=== PATIENT | male | born 1950 | race Caucasian/White ===

== ENCOUNTER → 2017-09-01 | Outpatient (CLI) | payer MEDICARE ==
--- NOTE | 2017-09-01 14:46 | RADIOLOGY REPORT (SQ) ---
EXAM DESCRIPTION: CHEST PA/LATERAL COMPLETED DATE/TIME: 09/01/2017 2:30 pm REASON FOR STUDY: PRE-OP COMPARISON: None. EXAM PARAMETERS: NUMBER OF VIEWS: two views TECHNIQUE: Digital Frontal and Lateral radiographic views of the chest acquired. RADIATION DOSE: NA LIMITATIONS: none FINDINGS: LUNGS AND PLEURA: No opacities, masses or pneumothorax. No pleural effusion. MEDIASTINUM AND HILAR STRUCTURES: No masses or contour abnormalities. HEART AND VASCULAR STRUCTURES: Heart normal size. No evidence for failure. BONES: No acute findings. HARDWARE: None in the chest. OTHER: No other significant finding. IMPRESSION: NO SIGNIFICANT RADIOGRAPHIC FINDING IN THE CHEST. TECHNICAL DOCUMENTATION: JOB ID: [id number]- All Rights Reserved Reading location - IP/workstation name: [email or web address]
[2017-09-01 15:14] LABS: ABSOLUTE BASOPHILS # (AUTO) 0.1 10^3/uL (0.0-0.2); ABSOLUTE LYMPHOCYTES (AUTO) 2.5 10^3/uL (0.5-4.7); ABSOLUTE MONOCYTES (AUTO) 0.8 10^3/uL (0.1-1.4); ABSOLUTE NEUT (AUTO) 5.3 10^3/uL (1.7-8.2); BASOPHILS % (AUTO) 0.6 % (0-2); HEMATOCRIT 46.1 % (37.9-51.0); HEMOGLOBIN 15.3 g/dL (13.5-17.0); LYMPHOCYTES % (AUTO) 26.2 % (13-45); MEAN CORPUSCULAR HEMOGLOBIN 30.8 pg (27.0-33.4); MEAN CORPUSCULAR HGB CONC 33.1 g/dL (32.0-36.0); MEAN CORPUSCULAR VOLUME 93 fl (80-97); MONOCYTES % (AUTO) 8.8 % (3-13); PLATELET COUNT 196 10^3/uL (150-450); RED BLOOD COUNT 4.96 10^6/uL (4.35-5.55); RED CELL DISTRIBUTION WIDTH 13.7 % (11.5-14.0); SEGMENTED NEUTROPHILS % (AUTO) 54.4 % (42-78); TOTAL CELLS COUNTED % (AUTO) 100 %; WHITE BLOOD COUNT 9.6 10^3/uL (4.0-10.5)
[2017-09-01 15:41] LABS: ANION GAP 12 (5-19); BLOOD UREA NITROGEN 22 mg/dL (7-20); CALCIUM 9.3 mg/dL (8.4-10.2); CARBON DIOXIDE 26 mmol/L (22-30); CHLORIDE 107 mmol/L (98-107); GLUCOSE 118 mg/dL (75-110); POTASSIUM 4.6 mmol/L (3.6-5.0); SODIUM 144.8 mmol/L (137-145)
--- NOTE | 2017-09-01 19:39 | EKG REPORT ---
SEVERITY:- OTHERWISE NORMAL ECG - SINUS RHYTHM LEFT AXIS DEVIATION : Confirmed by: Riaz Alejo MD 01-Sep-2017 19:38:46
== END ==
LOC: OD 13:40
PROVIDERS: ATTEND Orthopaedic Surgery
DX: Z01.818 Encounter for other preprocedural examination (principal); M23.42 Loose body in knee, left knee; M24.10 Other articular cartilage disorders, unspecified site
CPT/HCPCS: 36415; 71046; 80048; 85025; 93005; 93010

== ENCOUNTER 2017-09-08 06:42 | Day surgery (SDC) | payer MEDICARE ==
[2017-09-03 10:41] LABS: APPEARANCE,URINE CLEAR; BILIRUBIN,URINE NEGATIVE (NEGATIVE); COLOR,URINE YELLOW; GLUCOSE, URINE NEGATIVE (NEGATIVE); KETONES,URINE NEGATIVE (NEGATIVE); LEUKOCYTE ESTERASE,URINE NEGATIVE (NEGATIVE); NITRITE,URINE NEGATIVE (NEGATIVE); PROTEIN,URINE NEGATIVE (NEGATIVE); URINE SPECIFIC GRAVITY 1.011; UROBILINOGEN,URINE NEGATIVE mg/dL (<2.0)
[~2017-09-08 06:42] MED LIST: CEFAZOLIN 2 GM/D5W RTU 2 GM/50 ML RTUPB IV PRN; CEFAZOLIN SODIUM 2 GM in DEXTROSE 5%-WATER 100 ML IV SCH; LACTATED RINGERS 1000 ML IV PRN; LIDOCAINE 0.5% INJ-PF (5 MG/ML) 50 ML SDV SUBCUT PRN
[2017-09-08] MEDS ORDERED: BUPIVACAINE HCL 0.5 % INJ/PF 30 ML SDV ONE (08:14)
[2017-09-08] MEDS ORDERED: LIDOCAINE 1%/EPINEPHRINE INJ 20 ML VIAL ONE (08:14)
[2017-09-08] MEDS ORDERED: PROPOFOL INJ 200 MG/20 ML VIAL IV ONE (09:07)
[2017-09-08] MEDS ORDERED: FENTANYL CITRATE INJ/PF 100 MCG/2 ML AMPUL ONE (09:07)
[2017-09-08] MEDS ORDERED: MIDAZOLAM 2 MG/2 ML INJ ONE (09:07)
[2017-09-08] MEDS ORDERED: OXYCODONE-ACETAMINOPHEN 5-325 MG TABLET PO PRN ×2 (09:27)
[2017-09-08] MEDS ORDERED: PROMETHAZINE HCL INJ 25 MG/1 ML VIAL IV PRN ×2 (09:27)
[2017-09-08] MEDS ORDERED: MEPERIDINE HCL/PF INJ 25 MG/1 ML DISP.SYRIN IV PRN (09:27)
[2017-09-08] MEDS ORDERED: FENTANYL CITRATE INJ/PF 100 MCG/2 ML AMPUL IV PRN ×3 (09:27)
[2017-09-08] MEDS ORDERED: DIPHENHYDRAMINE HCL 50 MG/ML VIAL IV PRN (09:27)
--- NOTE | 2017-09-08 10:24 | Operative Report ---
Operative Report DATE OF SURGERY: 09/08/17 PREOPERATIVE DIAGNOSIS: Loose bodies left knee POSTOPERATIVE DIAGNOSIS: Loose body 3 left knee. Lateral meniscal tear. Lateral tibial plateau chondral defect. Intact ACL. Intact medial meniscus. 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 The knee is insufflated with combination of Xylocaine, Marcaine, and epinephrine. Subsequent medial lateral patella portals are created for the introduction of the arthroscope and debridements mentation. The joint is examined in systematic fashion. The findings demonstrated above. The first loose bodies identified at the base of the ACL. This is easily removed using a grabber. Is removed piecemeal because the particle is large and I did not want to increase the size of the portal to necessarily remove the loose body. Next loose body was identified in the posterior aspect of the knee. This was fairly elusive but eventually a grabber was able to remove this loose body piecemeal. Lastly a loose body is found over in the lateral gutter and this is removed piecemeal using a grabber. A partial lateral meniscectomy was performed from approximately 6:00 to 2:00 on the face of the dial. The joint again is examined in systematic fashion with no new findings. Instrumentation is removed. Portals reapproximated interrupted nylon. There is of note a fair amount of soft tissue edema presumed from for infiltration of the arthroscopy and a prolonged case. A compressive dressing is applied.
[2017-09-08] MEDS ORDERED: OXYCODONE HCL IR 5 MG TABLET PO PRN (10:38)
[2017-09-08] MEDS ORDERED: ONDANSETRON 4 MG TAB.RAPDIS SL PRN (10:38)
[2017-09-08] MEDS: FENTANYL CITRATE INJ/PF 100 MCG/2 ML AMPUL ONE ×2 (10:45→10:50)
[2017-09-08 12:45] VITALS: BP 114/77
[2017-09-08] MEDS ORDERED: LIDOCAINE 2% INJ-PF (20 MG/ML) 2 ML AMPUL ONE (13:40)
== END 2017-09-08 12:40 | disposition home or self-care (01) ==
LOC: OROUT 06:42
PROVIDERS: ATTEND Orthopaedic Surgery
DX: S83.282A Other tear of lateral meniscus, current injury, left knee, initial encounter (principal); X58.XXXA Exposure to other specified factors, initial encounter; M22.42 Chondromalacia patellae, left knee; M24.10 Other articular cartilage disorders, unspecified site; K21.9 Gastro-esophageal reflux disease without esophagitis; Z79.82 Long term (current) use of aspirin; Z79.899 Other long term (current) drug therapy
CPT/HCPCS: 29881; G0289; 1400; 36415; 81001; 88304; 88311; J0690; J2250; J2704; J3010; J3490

== ENCOUNTER 2019-09-11 16:40 | Inpatient (IN) | payer MEDICARE ==
[2019-09-11] MEDS ORDERED: NORMAL SALINE 1000 ML 1,000 ML IV ONE ×3 (17:31→21:59)
[2019-09-11 17:56] LABS: HEMOGLOBIN 9.9 g/dL (13.5-17.0); MEAN CORPUSCULAR HEMOGLOBIN 22.5 pg (27.0-33.4); MEAN CORPUSCULAR HGB CONC 30.9 g/dL (32.0-36.0); MEAN CORPUSCULAR VOLUME 73 fl (80-97); PLATELET COUNT 260 10^3/uL (150-450); RED CELL DISTRIBUTION WIDTH 17.8 % (11.5-14.0); WHITE BLOOD COUNT 14.3 10^3/uL (4.0-10.5)
[2019-09-11 18:04] LABS: ALBUMIN 3.7 g/dL (3.5-5.0); ALKALINE PHOSPHATASE 98 U/L (38-126); ANION GAP 7 (5-19); ASPARTATE AMINO TRANSFERASE 36 U/L (17-59); BILIRUBIN,TOTAL 0.5 mg/dL (0.2-1.3); BLOOD UREA NITROGEN 21 mg/dL (7-20); CALCIUM 9.1 mg/dL (8.4-10.2); CARBON DIOXIDE 25 mmol/L (22-30); CHLORIDE 104 mmol/L (98-107); CREATINE KINASE 279 U/L (55-170); GLUCOSE 124 mg/dL (75-110); POTASSIUM 3.8 mmol/L (3.6-5.0); TOTAL PROTEIN 6.3 g/dL (6.3-8.2)
[2019-09-11 18:12] LABS: ABSOLUTE LYMPHOCYTES# (MANUAL) 0.6 10^3/uL (0.5-4.7); BAND NEUTROPHILS % (MANUAL) 1 % (3-5); BASOPHILS % (MANUAL) 1 % (0-2); EOSINOPHILS % (MANUAL) 2 % (0-6); LYMPHOCYTES % (MANUAL) 4 % (13-45); MONOCYTES % (MANUAL) 7 % (3-13); SEGMENTED NEUTROPHILS % (MAN) 85 % (42-78); TOTAL CELLS COUNTED 100
[2019-09-11 18:14] LABS: ANISOCYTOSIS 1+; OVALOCYTES SLIGHT; PLATELET COMMENT ADEQUATE; PLATELET LARGE PRESENT; POIKILOCYTOSIS SLIGHT
--- NOTE | 2019-09-11 18:15 | RADIOLOGY REPORT (SQ) ---
EXAM DESCRIPTION: CHEST SINGLE VIEW IMAGES COMPLETED DATE/TIME: 09/11/2019 4:51 pm REASON FOR STUDY: sob COMPARISON: 09/01/2017 EXAM PARAMETERS: NUMBER OF VIEWS: One view. TECHNIQUE: Single frontal radiographic view of the chest acquired. RADIATION DOSE: NA LIMITATIONS: None. FINDINGS: LUNGS AND PLEURA: No opacities, masses or pneumothorax. No pleural effusion. MEDIASTINUM AND HILAR STRUCTURES: No masses. Contour normal. HEART AND VASCULAR STRUCTURES: Heart normal in size. Normal vasculature. BONES: No acute findings. HARDWARE: None in the chest. OTHER: No other significant finding. IMPRESSION: NO ACUTE RADIOGRAPHIC FINDING IN THE CHEST. TECHNICAL DOCUMENTATION: JOB ID: [id number] 2010 [employer]- All Rights Reserved Reading location - IP/workstation name: [email or web address]
[2019-09-11 19:05] LABS: APPEARANCE,URINE CLOUDY; BILIRUBIN,URINE NEGATIVE (NEGATIVE); COLOR,URINE AMBER; GLUCOSE, URINE NEGATIVE (NEGATIVE); KETONES,URINE NEGATIVE (NEGATIVE); PROTEIN,URINE 100 mg/dL (NEGATIVE); URINE SPECIFIC GRAVITY 1.025
[2019-09-11] MEDS ORDERED: LEVOFLOXACIN 750 MG/D5W RTU 750 MG/150 ML RTUPB IV ONE (19:28)
[2019-09-11] MEDS ORDERED: CEFTRIAXONE 2 GM/D5W RTU 2 GM/50 ML RTUPB IV ONE (21:04)
--- NOTE | 2019-09-11 21:22 | ER Document Report ---
ED General - General Chief Complaint: Heat Exposure Stated Complaint: POSSIBLE HEAT EXHAUSTION Time Seen by Provider: 09/11/19 16:46 Mode of Arrival: Medic Information source: Patient TRAVEL OUTSIDE OF THE [place] IN LAST 30 DAYS: No - HPI Notes: Patient comes in complaining of severe shaking. He states he came home from the store and had an episode where he was shaking uncontrollably and felt short of breath. He states he has not felt like he has had a fever recently. He denies any pain anywhere. He has not had any cough or congestion. He has had no known covert virus exposures. Patient has had no diarrhea. He denies any pain with urination. His symptoms were intermittent. Nothing made them better or worse. They were severe. - Related Data Allergies/Adverse Reactions: No Known Allergies Allergy (Verified 09/08/17 07:24) Home Medications: Prilosec Past Medical History - General Information source: Patient - Social History Smoking Status: Current Every Day Smoker Frequency of alcohol use: None Drug Abuse: None Family History: Reviewed & Not Pertinent Patient has homicidal ideation: No - Past Medical History Cardiac Medical History: Denies: Hx Coronary Artery Disease, Hx Heart Attack, Hx Hypertension Pulmonary Medical History: Denies: Hx Asthma, Hx Bronchitis, Hx COPD, Hx Pneumonia Neurological Medical History: Denies: Hx Cerebrovascular Accident, Hx Seizures Musculoskeletal Medical History: Reports Hx Arthritis - LEFT KNEE - Immunizations Hx Diphtheria, Pertussis, Tetanus Vaccination: - UNSURE Review of Systems - Review of Systems Constitutional: Chills, Fever, Malaise Cardiovascular: denies: Chest pain, Palpitations Respiratory: Short of breath. denies: Cough -: Yes All other systems reviewed and negative Physical Exam - Vital signs Vitals: Temp 100.1 F 09/11/19 16:42 Interpretation: Tachycardic - General General appearance: Appears well, Alert - HEENT Head: Normocephalic, Atraumatic Eyes: Normal Pupils: PERRL - Respiratory Respiratory status: No respiratory distress Chest status: Nontender Breath sounds: Normal Chest palpation: Normal - Cardiovascular Rhythm: Tachycardia Heart sounds: Normal auscultation Murmur: No - Abdominal Inspection: Normal Distension: No distension Bowel sounds: Normal Tenderness: Nontender Organomegaly: No organomegaly - Genitourinary Inspection: Normal Tenderness: Nontender Scrotum: Normal Notes: Prostate is not tender. - Back Back: Normal, Nontender - Extremities General upper extremity: Normal inspection, Nontender, Normal color, Normal ROM, Normal temperature General lower extremity: Normal inspection, Nontender, Normal color, Normal ROM, Normal temperature, Normal weight bearing. No: Alecia's sign - Neurological Neuro grossly intact: Yes Cognition: Normal Orientation: AAOx4 [place] Coma Scale Eye Opening: Spontaneous Henderson Coma Scale Verbal: Oriented Henderson Coma Scale Motor: Obeys Commands Henderson Coma Scale Total: 15 Speech: Normal Motor strength normal: LUE, RUE, LLE, RLE Sensory: Normal - Psychological Associated symptoms: Normal affect, Normal mood - Skin Skin Temperature: Warm Skin Moisture: Dry Skin Color: Normal Course - Re-evaluation Re-evalutation: 09/11/19 21:19 Patient presents with a clinical picture that seems most consistent with prostatitis. He has had rigors chills and a low-grade fever. He has an elevat ed white blood cell count. He has a urine that shows infection. Although his prostate is not tender he does complain of referred pain to the left superior medial thigh. Inspection of this area is unremarkable and is not tender to touch. It seems this is referred pain most likely from the prostate. Patient also has anemia. Patient has been tachycardic the entire time but is never been hypotensive. I was going to try to discharge the patient home however the patient had an episode of severe chills with his heart rate going into the 150s. At that time he also had some expiratory wheezes and stated he felt short of breath. I obtained multiple warm blankets and after about 20 to 25 minutes patient had had significant reduction of his shaking and his heart rate came down from the 150s to the 120s. His oxygen saturation was never noticed to go below 96%. He never had anything but expiratory wheezes and they were mild. His blood pressure has been stable the whole time. He has received 2 L of fluid. He was about an hour into his Levaquin infusion when the above shaking episode started so this was stopped. I have not started Rocephin. I am going to admit the patient. I noted lactate was not initially drawn as I felt the patient was going to be able to be discharged however I have now added on a lactate. - Vital Signs Vital signs: Temp Pulse Resp BP Pulse Ox 98.5 F 103 H 20 132/72 H 97 09/11/19 20:37 09/11/19 19:05 09/11/19 20:00 09/11/19 19:24 09/11/19 19:24 - Laboratory Result Diagrams: 09/11/19 17:20 09/11/19 17:20 Laboratory results interpreted by me: 09/11/19 09/11/19 09/11/19 17:11 17:20 17:20 WBC 14.3 H Hgb 9.9 L Hct 32.0 L MCV 73 L MCH 22.5 L MCHC 30.9 L RDW 17.8 H Seg Neuts % (Manual) 85 H Band Neutrophils % 1 L Lymphocytes % (Manual) 4 L Abs Neuts (Manual) 12.3 H Sodium 135.8 L BUN 21 H Est GFR (MDRD) Non-Af 59 L Glucose 124 H Creatine Kinase 279 H Urine Protein 100 H Urine Blood MODERATE H Urine Nitrite (Reflex) POSITIVE H Urine Urobilinogen 4.0 H Leukocyte Esterase Rfl MODERATE H - Diagnostic Test Radiology reviewed: Image reviewed, Reports reviewed - EKG Interpretation by Me EKG shows normal: Sinus rhythm Rate: Tachycardia Rhythm: NSR - 149 [place]/QRS: Left axis deviation Discharge - Discharge Clinical Impression: Acute prostatitis Condition: Serious Disposition: ADMITTED INPATIENT Admitting Provider: Janis (Hospitalist) Unit Admitted: Telemetry
[2019-09-11] MEDS ORDERED: ONDANSETRON HCL INJ/PF 4 MG/2 ML SDV IV PRN (21:48)
[2019-09-11] MEDS ORDERED: MAG HYDROX/AL HYDROX/SIMETH SUSP 30 ML UDCUP PO PRN (21:48)
[2019-09-11] MEDS ORDERED: RINGERS SOLUTION,LACTATED 1,000 ML IV PRN (21:48)
[2019-09-11] MEDS ORDERED: MAGNESIUM HYDROXIDE SUSP 30 ML UDCUP PO PRN (21:48)
[2019-09-11] MEDS ORDERED: MORPHINE SULFATE 10 MG/ML INJ IV PRN ×4 (21:53→22:37)
[2019-09-11] MEDS ORDERED: MELATONIN 5 MG TABLET PO PRN (21:53)
[2019-09-11] MEDS ORDERED: GUAIFENESIN SYRP 200 MG/10 ML UDC PO PRN (21:53)
[2019-09-11] MEDS ORDERED: IBUPROFEN 800 MG TABLET PO PRN (21:53)
[2019-09-11] MEDS ORDERED: LORAZEPAM INJ 2 MG/1 ML VIAL IV PRN (21:53)
[2019-09-11 22:21] LABS: ABSOLUTE RETICS # 0.067 10^6/uL (0.028-0.122); RETICULOCYTE COUNT (AUTO) 1.52 % (0.66-2.85)
[2019-09-11 22:23] LABS: IRON(TIBC) 12.3 ug/dL (49-181)
[2019-09-11] MEDS ORDERED: TAMSULOSIN HCL 0.4 MG CAP.SR.24H PO ONE (23:00)
[2019-09-11] MEDS: HEPARIN SOD (PORCINE) 5,000 UNIT/ML 1 ML VIAL SUBCUT SCH (23:11)
[2019-09-11] MEDS: ACETAMINOPHEN 325 MG TABLET PO PRN (23:11)
[2019-09-11 23:32] LABS: FOLATE > 20.00 ng/mL (>2.76)
--- NOTE | 2019-09-12 00:25 | EKG REPORT ---
SEVERITY:- OTHERWISE NORMAL ECG - SINUS TACHYCARDIA BORDERLINE LEFT AXIS DEVIATION : Confirmed by: Loretta Wallace 12-Sep-2019 00:24:33
--- NOTE | 2019-09-12 00:25 | EKG REPORT ---
SEVERITY:- ABNORMAL ECG - SINUS TACHYCARDIA MULTIFORM VENTRICULAR PREMATURE COMPLEXES LEFT AXIS DEVIATION REPOLARIZATION ABNORMALITY, PROB RATE RELATED : Confirmed by: Loretta Wallace 12-Sep-2019 00:24:28
--- NOTE | 2019-09-12 04:54 | PDOC H&P ---
History of Present Illness Admission Date/PCP: 09/11/2019 21:20 No local PCP Patient complains of: Rigors History of Present Illness: KIERA VÁSQUEZ is a 69 year old male who presents the emergency room with acute chills with rigors. He admits suddenly developing severe rigors and chills shor tly before presenting to the emergency room for evaluation. His rigors and chills were also accompanied by mild dyspnea. His rigors were also associated with a moderate constant aching pain in his left proximal medial thigh without radiation. He denies other associated or accompanying signs and symptoms. He denies prior similar episodes. He had been working outside in the heat for approximately 4 hours and felt that he was somewhat dehydrated prior to the onset of the rigors. He has not identified any aggravating or ameliorating factors for his rigors and chills. In the emergency room he was found to have pyuria and a very tender prostate on exam. He was also noted to have a hypochro radha microcytic anemia and a low-grade fever. His white blood count was 14,000, his lactic acid was 4.4 and he was noted to be mildly tachycardic. He was being treated with IV Levaquin when he developed another episode of severe rigors and a transient sinus tachycardia in the 150's. His antibiotic was changed to IV Rocephin which he received without further recurrence of rigors. He was subsequently admitted to the hospital for further evaluation and treatment. Past Medical History Cardiac Medical History: Denies: Atrial Fibrillation, Congestive Heart Failure, Coronary Artery Disease, DVT, Myocardial Infarction, Hyperlipidema, Hypertension, Peripheral Vascular Disease, Pulmonary Embolism Pulmonary Medical History: Denies: Asthma, Bronchitis, Chronic Obstructive Pulmonary Disease (COPD), Pneumonia EENT Medical History: Denies: Cataracts, Ears - Hearing aids Neurological Medical History: Denies: Hemorrhagic CVA, Ischemic CVA, Seizures Endocrine Medical History: Denies: Diabetes Mellitus Type 1, Diabetes Mellitus Type 2, Hyperthyroidism, Hypothyroidism, Obesity Renal/ Medical History: Denies: Chronic Kidney Disease, Nephrolithiasis GI Medical History: Reports: Gastroesophageal Reflux Disease Denies: Cirrhosis, Crohn's Disease, Hepatitis, Peptic Ulcer Disease, Ulcerative Colitis Musculoskeltal Medical History: Reports: Arthritis - Left knee Denies: Gout Skin Medical History: Denies: Eczema, Psoriasis Psychiatric Medical History: Reports: Tobacco Dependency Denies: Alcohol Dependency, Substance Abuse Traumatic Medical History: Reports: None Hematology: Denies: Anemia, Bleeding Tendencies Infectious Medical History: Reports: None Past Surgical History Past Surgical History: Reports: Orthopedic Surgery - Left knee arthroscopic surgery Social History Information Source: Patient Lives with: Alone Smoking Status: Current Every Day Smoker Electronic Cigarette use?: No Frequency of Alcohol Use: None Hx Recreational Drug Use: No Drugs: None Hx Prescription Drug Abuse: No - Advance Directive Resuscitation Status: Full Code Surrogate healthcare decision maker:: Germainerichie Muniz Family History Family History: denies: CAD, DM, Hypertension, Malignancy Parental Family History Reviewed: Yes Children Family History Reviewed: No Sibling(s) Family History Reviewed.: Yes Medication/Allergy Home Medications: Aspirin [Adult Aspirin] 1 tab PO DAILY 09/03/17 Multivit-Min/FA/Lycopen/Lutein [Centrum Silver Men Tablet] 1 tab PO DAILY 09/03/17 [place]-3/Dha/Epa/Fish Oil [[place] 3 500 Softgel] 1 tab PO DAILY 09/03/17 Omeprazole Magnesium [Prilosec Otc] 1 tab PO DAILY 09/03/17 Reservatrol 1 tab PO DAILY 09/03/17 [place] Extract/Quercetin [Prostate Pq Tablet] 1 tab PO DAILY 09/03/17 Allergies/Adverse Reactions: No Known Allergies Allergy (Verified 09/08/17 07:24) Review of Systems Constitutional: PRESENT: chills, other - Rigors. ABSENT: fever(s) Eyes: ABSENT: visual disturbances, other - Eye pain Ears: ABSENT: hearing changes, other - Ear pain Nose, Mouth, and Throat: ABSENT: headache(s), sore throat Cardiovascular: ABSENT: chest pain, palpitations Respiratory: ABSENT: cough, dyspnea Gastrointestinal: ABSENT: abdominal pain, constipation, diarrhea, nausea, vomiting Genitourinary: ABSENT: difficulty urinating, dysuria, hematuria Musculoskeletal: PRESENT: as per HPI, other - Left inner thigh pain. ABSENT: back pain, joint swelling Integumentary: ABSENT: pruritus, rash Neurological: ABSENT: confusion, convulsions, focal weakness, memory loss, syncope Psychiatric: ABSENT: anxiety, depression Endocrine: ABSENT: cold intolerance, heat intolerance Hematologic/Lymphatic: ABSENT: easy bleeding, easy bruising Allergic/Immunologic: ABSENT: seasonal rhinorrhea Physical Exam Vital Signs: Temp Pulse Resp BP Pulse Ox 98.5 F 103 H 20 132/72 H 97 06/22/20 20:37 09/11/19 19:05 09/11/19 20:00 09/11/19 19:24 09/11/19 19:24 Intake & Output 09/09/19 09/10/19 09/11/19 23:59 23:59 23:59 Intake Total 1999 Balance 1999 Weight 99.79 kg General appearance: PRESENT: no acute distress, cooperative Head exam: PRESENT: atraumatic, normocephalic Eye exam: PRESENT: conjunctiva pink. ABSENT: conjunctival injection, scleral icterus Ear exam: PRESENT: normal external ear exam. ABSENT: bleeding, drainage Mouth exam: PRESENT: dry mucosa, neck supple Neck exam: ABSENT: thyromegaly, tracheal deviation Respiratory exam: PRESENT: clear to auscultation williams, symmetrical, unlabored Cardiovascular exam: PRESENT: RRR. ABSENT: clicks, gallop, rubs Pulses: PRESENT: normal radial pulses, normal dorsalis pedis pul Vascular exam: PRESENT: normal capillary refill. ABSENT: pallor GI/Abdominal exam: PRESENT: normal bowel sounds, soft Rectal exam: PRESENT: deferred Extremities exam: ABSENT: joint swelling, pedal edema Musculoskeletal exam: ABSENT: ambulatory, deformity Neurological exam: PRESENT: alert, oriented to person, oriented to place, oriented to time, oriented to situation, CN II-XII grossly intact. ABSENT: motor sensory deficit Psychiatric exam: PRESENT: appropriate affect, normal mood Skin exam: PRESENT: dry, intact, warm. ABSENT: jaundice, rash, urticaria Results Laboratory Results: 09/11/19 17:20 09/11/19 17:20 09/11/19 09/11/19 09/11/19 17:11 17:20 17:20 WBC 14.3 H RBC 4.40 Hgb 9.9 L Hct 32.0 L MCV 73 L MCH 22.5 L MCHC 30.9 L RDW 17.8 H Plt Count 260 Seg Neutrophils % Not Reportable Sodium 135.8 L Potassium 3.8 Chloride 104 Carbon Dioxide 25 Anion Gap 7 BUN 21 H Creatinine 1.21 Est GFR ( Amer) > 60 Glucose 124 H Calcium 9.1 Magnesium 2.0 Total Bilirubin 0.5 AST 36 Alkaline Phosphatase 98 Total Protein 6.3 Albumin 3.7 Urine Color LOURDES Urine Appearance CLOUDY Urine pH 6.0 Ur Specific [place] 1.025 Urine Protein 100 H Urine Glucose (UA) NEGATIVE Urine Ketones NEGATIVE Urine Blood MODERATE H Urine RBC (Auto) 23 09/11/19 09/11/19 09/11/19 17:20 17:20 19:25 Creatine Kinase 279 H Troponin I 0.085 Cancelled Impressions: Chest X-Ray 09/11/19 17:31 IMPRESSION: NO ACUTE RADIOGRAPHIC FINDING IN THE CHEST. Assessment and Plan - Diagnosis (1) Acute prostatitis without hematuria Is this a current diagnosis for this admission?: Yes (2) SIRS (systemic inflammatory response syndrome) Is this a current diagnosis for this admission?: Yes (3) Rigors Is this a current diagnosis for this admission?: Yes (4) Leukocytosis Qualifiers: Leukocytosis type: unspecified Qualified Code(s): D72.829 - Elevated white blood cell count, unspecified Is this a current diagnosis for this admission?: Yes (5) Fever Qualifiers: Fever type: unspecified Qualified Code(s): R50.9 - Fever, unspecified Is this a current diagnosis for this admission?: Yes (6) Tachycardia Is this a current diagnosis for this admission?: Yes (7) Gastroesophageal reflux disease Qualifiers: Esophagitis presence: esophagitis presence not specified Qualified Code(s): K21.9 - Gastro-esophageal reflux disease without esophagitis Is this a current diagnosis for this admission?: Yes (8) Hypochromic microcytic anemia Is this a current diagnosis for this admission?: Yes - Plan Summary Summary: Patient will be admitted to the medical floor on telemetry where he will receive routine supportive and symptomatic cares. He will be treated with Rocephin 1 g IV every 24 hours due to his development of rigorous chills while receiving IV Levaquin. Urine and blood cultures are pending. Serial lactic acid levels are pending. He will be given IV fluids utilizing lactated Ringer's at 250 mL/h initially. Tylenol and/or ibuprofen will be used to control fever greater than 100.5 F. Serial CBCs, metabolic profiles and magnesium levels will be obtained as appropriate. An anemia profile will be obtained. A thyroid mini-profile will be obtained. He will be started on tamsulosin 0.4 mg p.o. daily. He will receive morphine sulfate 2 to 4 mg IV every 2 hours as needed for pain control. He will receive Ativan 1 mg IV every 4 hours as needed for anxiety or restlessness. - Time Time Spent with patient: 15-24 minutes Smoking Cessation Education: 3 to 10 minutes Medications reviewed and adjusted accordingly: Yes Anticipated discharge: Home - Inpatient Certification Based on my medical assessment, after consideration of the patient's comorbidities, presenting symptoms, or acuity I expect that the services needed warrant INPATIENT care.: Yes I certify that my determination is in accordance with my understanding of Medicare's requirements for reasonable and necessary INPATIENT services [42 CFR 412.3e].: Yes Medical Necessity: Need Close Monitoring Due to Risk of Patient Decompensation, Need For IV Fluids, Need For Continuous Telemetry Monitoring, Need for IV Antibiotics
[2019-09-12 06:49] LABS: HEMATOCRIT 31.2 % (37.9-51.0); HEMOGLOBIN 9.6 g/dL (13.5-17.0); MEAN CORPUSCULAR HEMOGLOBIN 22.7 pg (27.0-33.4); MEAN CORPUSCULAR HGB CONC 30.9 g/dL (32.0-36.0); MEAN CORPUSCULAR VOLUME 73 fl (80-97); PLATELET COUNT 230 10^3/uL (150-450); RED BLOOD COUNT 4.25 10^6/uL (4.35-5.55); RED CELL DISTRIBUTION WIDTH 17.6 % (11.5-14.0); WHITE BLOOD COUNT 17.1 10^3/uL (4.0-10.5)
[2019-09-12] MEDS: HEPARIN SOD (PORCINE) 5,000 UNIT/ML 1 ML VIAL SUBCUT SCH ×3 (07:00→22:28)
[2019-09-12 07:16] LABS: ANION GAP 10 (5-19); BLOOD UREA NITROGEN 17 mg/dL (7-20); CALCIUM 8.7 mg/dL (8.4-10.2); CARBON DIOXIDE 22 mmol/L (22-30); CHLORIDE 106 mmol/L (98-107); CHOLESTEROL 82.95 mg/dL (0-200); GLUCOSE 121 mg/dL (75-110); POTASSIUM 4.2 mmol/L (3.6-5.0); TRIGLYCERIDES 80 mg/dL (<150)
[2019-09-12 07:27] LABS: DIRECT LDL 31 mg/dL (<100)
[2019-09-12 07:31] LABS: FREE T3 2.71 pg/mL (2.77-5.27)
[2019-09-12] MEDS: PANTOPRAZOLE SODIUM 40 MG TABLET.DR PO SCH ×2 (07:37→17:42)
[2019-09-12 07:45] LABS: THYROID STIMULATING HORMONE 3.71 uIU/mL (0.47-4.68)
[2019-09-12] MEDS: DOCUSATE SODIUM 100 MG CAPSULE PO SCH ×2 (09:18→17:42)
[2019-09-12] MEDS ORDERED: FERROUS SULFATE 325 MG TABLET PO SCH (10:00)
--- NOTE | 2019-09-12 13:03 | PDOC PROGRESS REPORT ---
Subjective Progress Note for:: 09/12/19 Subjective:: The patient is anxious for home but his blood cultures are positive for E. coli. He states that he feels good but will remain in the hospital for ongoing treatment. Reason For Visit: ACUTE PROSTATITIS,FEVER,TACHYCARDIA,HYPOCHROMIC Physical Exam Vital Signs: Temp Pulse Resp BP Pulse Ox 97.9 F 90 17 121/64 96 09/12/19 08:43 09/12/19 08:43 09/12/19 08:43 09/12/19 08:43 09/12/19 08:43 Intake & Output 09/11/19 09/12/19 09/13/19 06:59 06:59 06:59 Intake Total 3700 Balance 3700 Weight 220 kg General appearance: PRESENT: no acute distress, cooperative, well-developed Head exam: PRESENT: atraumatic, normocephalic Eye exam: PRESENT: conjunctiva pink. ABSENT: scleral icterus Ear exam: PRESENT: normal external ear exam. ABSENT: bleeding, drainage Mouth exam: PRESENT: moist, tongue midline Respiratory exam: PRESENT: symmetrical, other - No auscultation due to to PUI status. ABSENT: accessory muscle use, prolonged expiratory phas, tachypnea, wheezes - No audible wheezes at the bedside Cardiovascular exam: PRESENT: other - No auscultation due to PUI GI/Abdominal exam: PRESENT: soft. ABSENT: distended, tenderness Rectal exam: PRESENT: deferred Gentrourinary exam: ABSENT: indwelling catheter Extremities exam: ABSENT: joint swelling, pedal edema Musculoskeletal exam: PRESENT: ambulatory, full ROM, normal inspection. ABSENT: deformity Neurological exam: PRESENT: alert, awake, oriented to person, oriented to place, oriented to time, oriented to situation, CN II-XII grossly intact. ABSENT: a ltered, motor sensory deficit Psychiatric exam: PRESENT: appropriate affect. ABSENT: agitated, anxious Focused psych exam: ABSENT: delusional, paranoid, restlessness Skin exam: PRESENT: dry, normal color, warm. ABSENT: rash Results Laboratory Results: 09/12/19 06:19 09/12/19 06:19 09/11/19 09/11/19 09/11/19 17:11 17:20 17:20 WBC 14.3 H RBC 4.40 Hgb 9.9 L Hct 32.0 L MCV 73 L MCH 22.5 L MCHC 30.9 L RDW 17.8 H Plt Count 260 Seg Neutrophils % Not Reportable Retic Count (auto) Sodium 135.8 L Potassium 3.8 Chloride 104 Carbon Dioxide 25 Anion Gap 7 BUN 21 H Creatinine 1.21 Est GFR ( Amer) > 60 Glucose 124 H Lactic Acid Calcium 9.1 Magnesium 2.0 Iron TIBC % Saturation Transferrin Ferritin Total Bilirubin 0.5 AST 36 Alkaline Phosphatase 98 Total Protein 6.3 Albumin 3.7 Triglycerides Cholesterol LDL Cholesterol Direct VLDL Cholesterol HDL Cholesterol Vitamin B12 Folate TSH Free T3 pg/mL Urine Color LOURDES Urine Appearance CLOUDY Urine pH 6.0 Ur Specific [place] 1.025 Urine Protein 100 H Urine Glucose (UA) NEGATIVE Urine Ketones NEGATIVE Urine Blood MODERATE H Urine RBC (Auto) 09/11/19 09/11/19 09/11/19 17:20 17:20 17:20 WBC RBC Hgb Hct MCV MCH MCHC RDW Plt Count Seg Neutrophils % Retic Count (auto) 1.52 Sodium Potassium Chloride Carbon Dioxide Anion Gap BUN Creatinine Est GFR ( Amer) Glucose Lactic Acid Calcium Magnesium Iron 12.3 L TIBC 417 % Saturation 3 Transferrin 324.37 Ferritin 26.90 Total Bilirubin AST Alkaline Phosphatase Total Protein Albumin Triglycerides Cholesterol LDL Cholesterol Direct VLDL Cholesterol HDL Cholesterol Vitamin B12 777.0 Folate > 20.00 TSH Free T3 pg/mL Urine Color Urine Appearance Urine pH Ur Specific [place] Urine Protein Urine Glucose (UA) Urine Ketones Urine Blood Urine RBC (Auto) 09/11/19 09/12/19 09/12/19 21:22 02:04 06:19 WBC 17.1 H RBC 4.25 L Hgb 9.6 L Hct 31.2 L MCV 73 L MCH 22.7 L MCHC 30.9 L RDW 17.6 H Plt Count 230 Seg Neutrophils % Retic Count (auto) Sodium Potassium Chloride Carbon Dioxide Anion Gap BUN Creatinine Est GFR ( Amer) Glucose Lactic Acid 4.4 H 1.4 Calcium Magnesium Iron TIBC % Saturation Transferrin Ferritin Total Bilirubin AST Alkaline Phosphatase Total Protein Albumin Triglycerides Cholesterol LDL Cholesterol Direct VLDL Cholesterol HDL Cholesterol Vitamin B12 Folate TSH Free T3 pg/mL Urine Color Urine Appearance Urine pH Ur Specific [place] Urine Protein Urine Glucose (UA) Urine Ketones Urine Blood Urine RBC (Auto) 09/12/19 09/12/19 09/12/19 06:19 06:19 06:19 WBC RBC Hgb Hct MCV MCH MCHC RDW Plt Count Seg Neutrophils % Retic Count (auto) Sodium 138.3 Potassium 4.2 Chloride 106 Carbon Dioxide 22 Anion Gap 10 BUN 17 Creatinine 0.98 Est GFR ( Amer) > 60 Glucose 121 H Lactic Acid 1.1 Calcium 8.7 Magnesium 1.9 Iron TIBC % Saturation Transferrin Ferritin Total Bilirubin AST Alkaline Phosphatase Total Protein Albumin Triglycerides 80 Cholesterol 82.95 LDL Cholesterol Direct 31 VLDL Cholesterol 16.0 HDL Cholesterol 34 L Vitamin B12 Folate TSH 3.71 Free T3 pg/mL 2.71 L Urine Color Urine Appearance Urine pH Ur Specific [place] Urine Protein Urine Glucose (UA) Urine Ketones Urine Blood Urine RBC (Auto) 09/12/19 10:06 WBC RBC Hgb Hct MCV MCH MCHC RDW Plt Count Seg Neutrophils % Retic Count (auto) Sodium Potassium Chloride Carbon Dioxide Anion Gap BUN Creatinine Est GFR ( Amer) Glucose Lactic Acid 2.2 H Calcium Magnesium Iron TIBC % Saturation Transferrin Ferritin Total Bilirubin AST Alkaline Phosphatase Total Protein Albumin Triglycerides Cholesterol LDL Cholesterol Direct VLDL Cholesterol HDL Cholesterol Vitamin B12 Folate TSH Free T3 pg/mL Urine Color Urine Appearance Urine pH Ur Specific [place] Urine Protein Urine Glucose (UA) Urine Ketones Urine Blood Urine RBC (Auto) 09/11/19 19:35 Blood Blood Culture (PCR) - Final Escherichia Coli 09/11/19 09/11/19 09/11/19 17:20 17:20 19:25 Creatine Kinase 279 H Troponin I 0.085 Cancelled 09/11/19 21:11 Creatine Kinase Troponin I 0.153 Impressions: Chest X-Ray 09/11/19 17:31 IMPRESSION: NO ACUTE RADIOGRAPHIC FINDING IN THE CHEST. Assessment and Plan - Diagnosis (1) Acute prostatitis without hematuria Is this a current diagnosis for this admission?: Yes Plan: 09/12/2019 A PSA was not obtained however the patient had prostate tenderness based on the emergency department physician exam. He was having hesitancy and difficulty urinating. Urine culture was positive for E. coli as well. He is improved with Flomax and antibiotic therapy. Due to the prostatitis he will need 3 weeks of antibiotic therapy. (2) E coli bacteremia Is this a current diagnosis for this admission?: Yes Plan: 09/12/2019 Likely result of the prostatitis. Continue antibiotics based on identification and sensitivities. (3) SIRS (systemic inflammatory response syndrome) Is this a current diagnosis for this admission?: Yes Plan: 09/12/2019 Continue IV fluids and supportive care (4) Rigors Is this a current diagnosis for this admission?: Yes Plan: 09/12/2019 Secondary to infection. No further episodes. (5) Leukocytosis Qualifiers: Leukocytosis type: unspecified Qualified Code(s): D72.829 - Elevated white blood cell count, unspecified Is this a current diagnosis for this admission?: Yes Plan: 09/12/2019 Secondary to infection. White blood cell count is up to 17,000 today. We will continue to monitor as the antibiotic therapy continues. (6) Fever Qualifiers: Fever type: unspecified Qualified Code(s): R50.9 - Fever, unspecified Is this a current diagnosis for this admission?: Yes Plan: 09/12/2019 Secondary to infection. Supportive care. Monitor vital signs. (7) Tachycardia Is this a current diagnosis for this admission?: Yes Plan: 09/12/2019 Part of the systemic inflammatory response. This is secondary to infection. Improved with IV fluids. (8) Gastroesophageal reflux disease Qualifiers: Esophagitis presence: esophagitis presence not specified Qualified Code(s): K21.9 - Gastro-esophageal reflux disease without esophagitis Is this a current diagnosis for this admission?: Yes Plan: 09/12/2019 PPI therapy with Protonix (9) Iron deficiency anemia Qualifiers: Iron deficiency anemia type: unspecified iron deficiency Qualified Code(s): D50.9 - Iron deficiency anemia, unspecified Is this a current diagnosis for this admission?: Yes Plan: 09/12/2019 We will monitor hemoglobin. Oral iron supplement started. (10) Elevated troponin Is this a current diagnosis for this admission?: Yes Plan: 09/12/2019 Likely secondary to the infection. We will continue to trend troponins and repeat an EKG. I did start aspirin 81 mg daily. - Plan Summary Summary: Patient will be admitted to the medical floor on telemetry where he will receive routine supportive and symptomatic cares. He will be treated with Rocephin 1 g IV every 24 hours due to his development of rigorous chills while receiving IV Levaquin. Urine and blood cultures are pending. Serial lactic acid levels are pending. He will be given IV fluids utilizing lactated Ringer's at 250 mL/h i nitially. Tylenol and/or ibuprofen will be used to control fever greater than 100.5 F. Serial CBCs, metabolic profiles and magnesium levels will be obtained as appropriate. An anemia profile will be obtained. A thyroid mini-profile will be obtained. He will be started on tamsulosin 0.4 mg p.o. daily. He will receive morphine sulfate 2 to 4 mg IV every 2 hours as needed for pain control. He will receive Ativan 1 mg IV every 4 hours as needed for anxiety or restlessness. - Time Time Spent with patient: 15-24 minutes Medications reviewed and adjusted accordingly: Yes Anticipated discharge: Home
[2019-09-12] MEDS: RINGERS SOLUTION,LACTATED 1,000 ML IV PRN ×2 (14:02→17:50)
[2019-09-12] MEDS: ACETAMINOPHEN 325 MG TABLET PO PRN (17:42)
[2019-09-12] MEDS ORDERED: TAMSULOSIN HCL 0.4 MG CAP.SR.24H PO SCH (18:00)
[2019-09-12] MEDS: FERROUS SULFATE 325 MG TABLET PO SCH (18:09)
[2019-09-12] MEDS ORDERED: CEFTRIAXONE 1 GM/D5W RTU 1 GM/50 ML RTUPB IV SCH (22:00)
[2019-09-12] MEDS ORDERED: ASPIRIN 81 MG TABLET, ENT COATED PO SCH (22:00)
[2019-09-13] MEDS: ACETAMINOPHEN 325 MG TABLET PO PRN (01:04)
[2019-09-13] MEDS: RINGERS SOLUTION,LACTATED 1,000 ML IV PRN (01:05)
[2019-09-13] MEDS: PANTOPRAZOLE SODIUM 40 MG TABLET.DR PO SCH (06:51)
[2019-09-13] MEDS: HEPARIN SOD (PORCINE) 5,000 UNIT/ML 1 ML VIAL SUBCUT SCH ×2 (06:51→13:34)
[2019-09-13 07:01] LABS: ABSOLUTE BASOPHILS # (AUTO) 0.1 10^3/uL (0.0-0.2); ABSOLUTE EOSINOPHILS # (AUTO) 1.1 10^3/uL (0.0-0.6); ABSOLUTE LYMPHOCYTES (AUTO) 0.9 10^3/uL (0.5-4.7); ABSOLUTE MONOCYTES (AUTO) 1.2 10^3/uL (0.1-1.4); BASOPHILS % (AUTO) 0.6 % (0-2); EOSINOPHILS % (AUTO) 10.1 % (0-6); HEMATOCRIT 30.3 % (37.9-51.0); HEMOGLOBIN 9.5 g/dL (13.5-17.0); LYMPHOCYTES % (AUTO) 9.1 % (13-45); MEAN CORPUSCULAR HEMOGLOBIN 22.7 pg (27.0-33.4); MEAN CORPUSCULAR HGB CONC 31.2 g/dL (32.0-36.0); MEAN CORPUSCULAR VOLUME 73 fl (80-97); MONOCYTES % (AUTO) 12.1 % (3-13); PLATELET COUNT 218 10^3/uL (150-450); RED BLOOD COUNT 4.17 10^6/uL (4.35-5.55); SEGMENTED NEUTROPHILS % (AUTO) 68.1 % (42-78); TOTAL CELLS COUNTED % (AUTO) 100 %; WHITE BLOOD COUNT 10.4 10^3/uL (4.0-10.5)
[2019-09-13 07:20] LABS: ANION GAP 8 (5-19); BLOOD UREA NITROGEN 15 mg/dL (7-20); CALCIUM 8.9 mg/dL (8.4-10.2); CARBON DIOXIDE 23 mmol/L (22-30); CHLORIDE 106 mmol/L (98-107); GLUCOSE 133 mg/dL (75-110); POTASSIUM 4.1 mmol/L (3.6-5.0)
[2019-09-13] MEDS: DOCUSATE SODIUM 100 MG CAPSULE PO SCH ×2 (10:54→10:58)
[2019-09-13] MEDS: FERROUS SULFATE 325 MG TABLET PO SCH (10:54)
--- NOTE | 2019-09-13 13:15 | EKG REPORT ---
SEVERITY:- OTHERWISE NORMAL ECG - SINUS RHYTHM BORDERLINE LEFT AXIS DEVIATION : Confirmed by: Loretta Wallace 13-Sep-2019 13:14:46
--- NOTE | 2019-09-13 15:30 | PDOC DISCHARGE SUMMARY ---
"Impression - Admit/DC Date/PCP Admission Date/Primary Care Provider: 09/11/19 21:32 Discharge Date: 09/13/19 - Discharge Diagnosis (1) Acute prostatitis without hematuria Is this a current diagnosis for this admission?: Yes (2) E coli bacteremia Is this a current diagnosis for this admission?: Yes (3) SIRS (systemic inflammatory response syndrome) Is this a current diagnosis for this admission?: Yes (4) Rigors Is this a current diagnosis for this admission?: Yes (5) Leukocytosis Is this a current diagnosis for this admission?: Yes (6) Fever Is this a current diagnosis for this admission?: Yes (7) Tachycardia Is this a current diagnosis for this admission?: Yes (8) Gastroesophageal reflux disease Is this a current diagnosis for this admission?: Yes (9) Iron deficiency anemia Is this a current diagnosis for this admission?: Yes (10) Elevated troponin Is this a current diagnosis for this admission?: Yes - Assessment Summary: Patient will be admitted to the medical floor on telemetry where he will receive routine supportive and symptomatic cares. He will be treated with Rocephin 1 g IV every 24 hours due to his development of rigorous chills while receiving IV Levaquin. Urine and blood cultures are pending. Serial lactic acid levels are pending. He will be given IV fluids utilizing lactated Ringer's at 250 mL/h initially. Tylenol and/or ibuprofen will be used to control fever greater than 100.5 F. Serial CBCs, metabolic profiles and magnesium levels will be obtained as appropriate. An anemia profile will be obtained. A thyroid mini-profile will be obtained. He will be started on tamsulosin 0.4 mg p.o. daily. He will receive morphine sulfate 2 to 4 mg IV every 2 hours as needed for pain control. He will receive Ativan 1 mg IV every 4 hours as needed for anxiety or restlessness. - Additional Information Resuscitation Status: Full Code Discharge Diet: Regular Discharge Activity: Activity As Tolerated Referrals: [facility] [Provider Group] - 09/19/19 1:30 pm ([facility]) [address] [place] [id number] | fax: [phone]) Prescriptions: Ciprofloxacin HCl [Cipro 500 mg Tablet] 500 mg PO BID 20 Days #40 tablet Tamsulosin HCl [Flomax 0.4 mg Cap.sr] 0.4 mg PO PCSUPPER #30 cap.sr.24h Home Medications: Omeprazole Magnesium [Prilosec Otc] 1 tab PO DAILY 09/03/17 Aspirin [Ecotrin 81 mg EC Tablet] 81 mg PO QHS tabec 09/13/19 Ciprofloxacin HCl [Cipro 500 mg Tablet] 500 mg PO BID 20 Days #40 tablet 09/13/19 Docusate Sodium [Colace 100 mg Capsule] 100 mg PO BID capsule 09/13/19 Ferrous Sulfate [Feosol 325 mg Tablet] 325 mg PO BID tablet 09/13/19 Tamsulosin HCl [Flomax 0.4 mg Cap.sr] 0.4 mg PO PCSUPPER #30 cap.sr.24h 09/13/19 History of Present Illiness History of Present Illness: KIERA VÁSQUEZ is a 69 year old male who presents the emergency room with acute chills with rigors. He admits suddenly developing severe rigors and chills shortly before presenting to the emergency room for evaluation. His rigors and chills were also accompanied by mild dyspnea. His rigors were also associated with a moderate constant aching pain in his left proximal medial thigh without radiation. He denies other associated or accompanying signs and symptoms. He denies prior similar episodes. He had been working outside in the heat for approximately 4 hours and felt that he was somewhat dehydrated prior to the onset of the rigors. He has not identified any aggravating or ameliorating factors for his rigors and chills. In the emergency room he was found to have pyuria and a very tender prostate on exam. He was also noted to have a hypochromic microcytic anemia and a low-grade fever. His white blood count was 14,000, his lactic acid was 4.4 and he was noted to be mildly tachycardic. He was being treated with IV Levaquin when he developed another episode of severe rigors and a transient sinus tachycardia in the 150's. His antibiotic was changed to IV Rocephin which he received without further recurrence of rigors. He was subsequently admitted to the hospital for further evaluation and treatment. Hospital Course Hospital Course: (1) Acute prostatitis without hematuria Is this a current diagnosis for this admission?: Yes Plan: 09/12/2019 A PSA was not obtained however the patient had prostate tenderness based on the emergency department physician exam. He was having hesitancy and difficulty urinating. Urine culture was positive for E. coli as well. He is improved with Flomax and antibiotic therapy. Due to the prostatitis he will need 3 weeks of antibiotic therapy. (2) E coli bacteremia Is this a current diagnosis for this admission?: Yes Plan: 09/12/2019 Likely result of the prostatitis. Continue antibiotics based on identification and sensitivities. (3) SIRS (systemic inflammatory response syndrome) Is this a current diagnosis for this admission?: Yes Plan: 09/12/2019 Continue IV fluids and supportive care (4) Rigors Is this a current diagnosis for this admission?: Yes Plan: 09/12/2019 Secondary to infection. No further episodes. (5) Leukocytosis Qualifiers: Leukocytosis type: unspecified Qualified Code(s): D72.829 - Elevated white blood cell count, unspecified Is this a current diagnosis for this admission?: Yes Plan: 09/12/2019 Secondary to infection. White blood cell count is up to 17,000 today. We will continue to monitor as the antibiotic therapy continues. (6) Fever Qualifiers: Fever type: unspecified Qualified Code(s): R50.9 - Fever, unspecified Is this a current diagnosis for this admission?: Yes Plan: 09/12/2019 Secondary to infection. Supportive care. Monitor vital signs. (7) Tachycardia Is this a current diagnosis for this admission?: Yes Plan: 09/12/2019 Part of the systemic inflammatory response. This is secondary to infection. Improved with IV fluids. (8) Gastroesophageal reflux disease Qualifiers: Esophagitis presence: esophagitis presence not specified Qualified Code(s): K21.9 - Gastro-esophageal reflux disease without esophagitis Is this a current diagnosis for this admission?: Yes Plan: 09/12/2019 PPI therapy with Protonix (9) Iron deficiency anemia Qualifiers: Iron deficiency anemia type: unspecified iron deficiency Qualified Code(s): D50.9 - Iron deficiency anemia, unspecified Is this a current diagnosis for this admission?: Yes Plan: 09/12/2019 We will monitor hemoglobin. Oral iron supplement started. (10) Elevated troponin Is this a current diagnosis for this admission?: Yes Plan: 09/12/2019 Likely secondary to the infection. We will continue to trend troponins and repeat an EKG. I did start aspirin 81 mg daily. Physical Exam Vital Signs: Temp Pulse Resp BP Pulse Ox 98.6 F 86 19 158/73 H 97 09/13/19 12:36 09/13/19 12:36 09/13/19 12:36 09/13/19 12:36 09/13/19 12:36 Intake & Output 09/12/19 09/13/19 09/14/19 06:59 06:59 06:59 Intake Total 3700 3715 260 Balance 3700 3715 260 Weight 220 kg General appearance: PRESENT: no acute distress, well-developed Respiratory exam: PRESENT: clear to auscultation williams, symmetrical, unlabored. ABSENT: rhonchi, tachypnea, wheezes Cardiovascular exam: PRESENT: RRR, +S1, +S2 GI/Abdominal exam: PRESENT: soft. ABSENT: tenderness Rectal exam: PRESENT: deferred Gentrourinary exam: ABSENT: indwelling catheter Extremities exam: ABSENT: pedal edema Neurological exam: PRESENT: alert, awake, oriented to person, oriented to place, oriented to time, oriented to situation, CN II-XII grossly intact. ABSENT: altered, motor sensory deficit Psychiatric exam: PRESENT: appropriate affect, normal mood. ABSENT: agitated, anxious Focused psych exam: ABSENT: delusional, paranoid Skin exam: PRESENT: dry, normal color, warm. ABSENT: rash Results Laboratory Results: WBC 10.4 10^3/uL (4.0-10.5) 09/13/19 06:30 RBC 4.17 10^6/uL (4.35-5.55) L 09/13/19 06:30 Hgb 9.5 g/dL (13.5-17.0) L 09/13/19 06:30 Hct 30.3 % (37.9-51.0) L 09/13/19 06:30 MCV 73 fl (80-97) L 09/13/19 06:30 MCH 22.7 pg (27.0-33.4) L 09/13/19 06:30 MCHC 31.2 g/dL (32.0-36.0) L 09/13/19 06:30 RDW 18.0 % (11.5-14.0) H 09/13/19 06:30 Plt Count 218 10^3/uL (150-450) 09/13/19 06:30 Lymph % (Auto) 9.1 % (13-45) L 09/13/19 06:30 [place] % (Auto) 12.1 % (3-13) 09/13/19 06:30 Eos % (Auto) 10.1 % (0-6) H 09/13/19 06:30 Baso % (Auto) 0.6 % (0-2) 09/13/19 06:30 Reticulocyte # 0.067 10^6/uL (0.028-0.122) 09/11/19 17:20 Absolute Neuts (auto) 7.0 10^3/uL (1.7-8.2) 09/13/19 06:30 Absolute Lymphs (auto) 0.9 10^3/uL (0.5-4.7) 09/13/19 06:30 Absolute Monos (auto) 1.2 10^3/uL (0.1-1.4) 09/13/19 06:30 Absolute Eos (auto) 1.1 10^3/uL (0.0-0.6) H 09/13/19 06:30 Absolute Basos (auto) 0.1 10^3/uL (0.0-0.2) 09/13/19 06:30 Total Counted 100 09/11/19 17:20 Seg Neutrophils % 68.1 % (42-78) 09/13/19 06:30 Seg Neuts % (Manual) 85 % (42-78) H 09/11/19 17:20 Band Neutrophils % 1 % (3-5) L 09/11/19 17:20 Lymphocytes % (Manual) 4 % (13-45) L 09/11/19 17:20 Monocytes % (Manual) 7 % (3-13) 09/11/19 17:20 Eosinophils % (Manual) 2 % (0-6) 09/11/19 17:20 Basophils % (Manual) 1 % (0-2) 09/11/19 17:20 Abs Neuts (Manual) 12.3 10^3/uL (1.7-8.2) H 09/11/19 17:20 Abs Lymphs (Manual) 0.6 10^3/uL (0.5-4.7) 09/11/19 17:20 Abs Monocytes (Manual) 1.0 10^3/uL (0.1-1.4) 09/11/19 17:20 Absolute Eos (Manual) 0.3 10^3/uL (0.0-0.6) 09/11/19 17:20 Abs Basophils (Manual) 0.1 10^3/uL (0.0-0.2) 09/11/19 17:20 Large Platelets PRESENT 09/11/19 17:20 Platelet Comment ADEQUATE 09/11/19 17:20 Poikilocytosis SLIGHT 09/11/19 17:20 Anisocytosis 1+ 09/11/19 17:20 Microcytosis 1+ 09/11/19 17:20 Ovalocytes SLIGHT 09/11/19 17:20 Retic Count (auto) 1.52 % (0.66-2.85) 09/11/19 17:20 Sodium 137.1 mmol/L (137-145) 09/13/19 06:30 Potassium 4.1 mmol/L (3.6-5.0) 09/13/19 06:30 Chloride 106 mmol/L (98-107) 09/13/19 06:30 Carbon Dioxide 23 mmol/L (22-30) 09/13/19 06:30 Anion Gap 8 (5-19) 09/13/19 06:30 BUN 15 mg/dL (7-20) 09/13/19 06:30 Creatinine 1.17 mg/dL (0.52-1.25) 09/13/19 06:30 Est GFR ( Amer) > 60 (>60) 09/13/19 06:30 Est GFR (MDRD) Non-Af > 60 (>60) 09/13/19 06:30 Glucose 133 mg/dL (75-110) H 09/13/19 06:30 POC Glucose 208 mg/dL (70-110) H 09/12/19 00:54 Lactic Acid 0.8 mmol/L (0.7-2.1) 09/13/19 06:30 Calcium 8.9 mg/dL (8.4-10.2) 09/13/19 06:30 Magnesium 2.0 mg/dL (1.6-2.3) 09/13/19 06:30 Iron 12.3 ug/dL (49-181) L 09/11/19 17:20 TIBC 417 ug/dL (250-450) 09/11/19 17:20 % Saturation 3 % 09/11/19 17:20 Transferrin 324.37 mg/dL (206.00-381.00) 09/11/19 17:20 Ferritin 26.90 ng/mL (17.9-464.0) 09/11/19 17:20 Total Bilirubin 0.5 mg/dL (0.2-1.3) 09/11/19 17:20 Direct Bilirubin 0.0 mg/dL (0.0-0.4) 09/11/19 17:20 Neonat Total Bilirubin Not Reportable 09/11/19 17:20 Neonat Direct Bilirubin Not Reportable 09/11/19 17:20 Neonat Indirect Bili Not Reportable 09/11/19 17:20 AST 36 U/L (17-59) 09/11/19 17:20 ALT 27 U/L (<50) 09/11/19 17:20 Alkaline Phosphatase 98 U/L (38-126) 09/11/19 17:20 Creatine Kinase 279 U/L (55-170) H 09/11/19 17:20 Troponin I 0.052 ng/mL 09/13/19 06:30 Total Protein 6.3 g/dL (6.3-8.2) 09/11/19 17:20 Albumin 3.7 g/dL (3.5-5.0) 09/11/19 17:20 Triglycerides 80 mg/dL (<150) 09/12/19 06:19 Cholesterol 82.95 mg/dL (0-200) 09/12/19 06:19 LDL Cholesterol Direct 31 mg/dL (<100) 09/12/19 06:19 VLDL Cholesterol 16.0 mg/dL (10-31) 09/12/19 06:19 HDL Cholesterol 34 mg/dL (>40) L 09/12/19 06:19 Vitamin B12 777.0 pg/mL (239-931) 09/11/19 17:20 Folate > 20.00 ng/mL (>2.76) 09/11/19 17:20 TSH 3.71 uIU/mL (0.47-4.68) 09/12/19 06:19 Free T3 pg/mL 2.71 pg/mL (2.77-5.27) L 09/12/19 06:19 Urine Color LOURDES 09/11/19 17:11 Urine Appearance CLOUDY 09/11/19 17:11 Urine pH 6.0 (5.0-9.0) 09/11/19 17:11 Ur Specific [place] 1.025 09/11/19 17:11 Urine Protein 100 mg/dL (NEGATIVE) H 09/11/19 17:11 Urine Glucose (UA) NEGATIVE mg/dL (NEGATIVE) 09/11/19 17:11 Urine Ketones NEGATIVE mg/dL (NEGATIVE) 09/11/19 17:11 Urine Blood MODERATE (NEGATIVE) H 09/11/19 17:11 Urine Nitrite (Reflex) POSITIVE (NEGATIVE) H 09/11/19 17:11 Urine Bilirubin NEGATIVE (NEGATIVE) 09/11/19 17:11 Urine Urobilinogen 4.0 mg/dL (<2.0) H 09/11/19 17:11 Leukocyte Esterase Rfl MODERATE (NEGATIVE) H 09/11/19 17:11 Urine RBC (Auto) 23 /HPF 09/11/19 17:11 Urine Bacteria (Auto) TRACE /HPF 09/11/19 17:11 Urine WBC (Reflex) 113 /HPF 09/11/19 17:11 Squamous Epi Cells Auto 1 /HPF 09/11/19 17:11 Urine Mucus (Auto) OCC /LPF 09/11/19 17:11 Urine Ascorbic Acid NEGATIVE (NEGATIVE) 09/11/19 17:11 09/11/19 09/11/19 09/11/19 17:20 19:25 21:11 Troponin I 0.085 Cancelled 0.153 09/13/19 06:30 Troponin I 0.052 Impressions: Chest X-Ray 09/11/19 17:31 IMPRESSION: NO ACUTE RADIOGRAPHIC FINDING IN THE CHEST. Plan Health Concerns: Needs to establish with primary care provider to follow-up prostatitis Plan of Treatment: Extended course of ciprofloxacin for prostatitis and E. coli bacteremia Goals: Resolution of infection Time Spent: Greater than 30 Minutes Stroke Is this a Stroke Patient?: No Acute Heart Failure - Is this a Heart Failure Patient?: No"
[2019-09-13 15:33] VITALS: BP 110/55
== END 2019-09-13 16:20 | disposition home or self-care (01) | DRG 728 ==
LOC: ER 16:40 → EH 21:32 → 3N 09-12 01:10
PROVIDERS: ADMIT Emergency Medicine; ATTEND Hospitalist
DX: N41.0 Acute prostatitis (principal); B96.20 Unspecified Escherichia coli [E. coli] as the cause of diseases classified elsewhere; D72.829 Elevated white blood cell count, unspecified; R79.89 Other specified abnormal findings of blood chemistry; R00.0 Tachycardia, unspecified; K21.9 Gastro-esophageal reflux disease without esophagitis; F17.200 Nicotine dependence, unspecified, uncomplicated; D50.9 Iron deficiency anemia, unspecified; Z20.828 Contact with and (suspected) exposure to other viral communicable diseases; Z79.82 Long term (current) use of aspirin; Z79.899 Other long term (current) drug therapy; Z82.49 Family history of ischemic heart disease and other diseases of the circulatory system; Z83.3 Family history of diabetes mellitus
CPT/HCPCS: 36415; 71045; 80048; 80053; 80061; 81001; 82550; 82607; 82728; 82746; 82962; 83540; 83550; 83605; 83735; 84443; 84466; 84481; 84484; 85025; 85027; 85045; 87040; 87077; 87086; 87088; 87150; 87186; 87635; 93005; 93010; 96361; 96365; 99285; C9803; J0696; J1644; J1956; J3490; J7030; J7120